=== PATIENT | male | born 1985 | race Two or more races ===

== ENCOUNTER 2021-01-20 19:48 | Emergency (ER) | payer MEDICAID ==
[~2021-01-20] VITALS: Ht 175.3 cm; Wt 86.0 kg
[2021-01-20] MEDS ORDERED: TETANUS, DIPHTHERIA, PERTUSSIS VAC/PF 0.5ML (>7YR OLD) IM ONE (20:45)
[2021-01-20] MEDS ORDERED: HYDROCODONE/ACETAMINOPHEN 5/325MG TABLET PO ONE (20:45)
[2021-01-20] MEDS ORDERED: ONDANSETRON 4MG ODT PO ONE (21:15)
[2021-01-20] MEDS ORDERED: HYDROCODONE/ACETAMINOPHEN 10/325MG TABLET PO ONE (22:00)
[2021-01-21 01:11] VITALS: BP 108/60
== END 2021-01-21 01:12 | disposition home or self-care (01) ==
LOC: ER 19:48
DX: S01.01XA Laceration without foreign body of scalp, initial encounter (principal); S61.411A Laceration without foreign body of right hand, initial encounter; W31.89XA Contact with other specified machinery, initial encounter; Y93.89 Activity, other specified; Y92.69 Other specified industrial and construction area as the place of occurrence of the external cause; Z89.422 Acquired absence of other left toe(s)
CPT/HCPCS: 12002; 70450; 73130; 90471; 90715; 99284; Q0162; Z7610

== ENCOUNTER 2024-03-12 15:09 | Emergency (ER) | payer BC, MEDICAID ==
[~2024-03-12] VITALS: Ht 175.3 cm; Wt 82.0 kg
[2024-03-12 15:19] VITALS: O2SAT 99
[2024-03-12 15:23] VITALS: BP 128/74; PULSE 65; RESP 18; TEMP 98.6; O2SAT 100
[2024-03-12] MEDS ORDERED: IBUP-2028 MT (17:42)
[2024-03-12] MEDS ORDERED: LIDO700A15 TP (17:42)
[2024-03-12] MEDS ORDERED: METH-653 MT (17:42)
== END 2024-03-12 17:52 | disposition home or self-care (01) ==
LOC: ER 15:09
DX: S33.5XXA Sprain of ligaments of lumbar spine, initial encounter (principal); V49.40XA Driver injured in collision with unspecified motor vehicles in traffic accident, initial encounter; Y93.89 Activity, other specified; Y92.89 Other specified places as the place of occurrence of the external cause; Y99.8 Other external cause status
CPT/HCPCS: 99283